=== PATIENT | female | born 1995 | race Asian ===

== ENCOUNTER 2024-08-16 13:11 | Emergency (ER) | payer MEDICAID ==
[~2024-08-16] VITALS: Ht 162.6 cm; Wt 56.8 kg
[2024-08-16 13:15] VITALS: BP 146/79; PULSE 62; RESP 18; TEMP 98.1; O2SAT 99
[2024-08-16] MEDS ORDERED: IBUP-1492 PO (13:48)
[2024-08-16] MEDS ORDERED: ACET-2247 PO (13:48)
[2024-08-16] MEDS ORDERED: AMOX-457 PO (13:48)
[2024-08-16] MEDS: ACETAMINOPHEN 500 MG TABLET PO ONE (14:00)
[2024-08-16] MEDS: AMOX TR/POT CLAV 875 MG/125 MG TABLET PO ONE (14:00)
[2024-08-16] MEDS: IBUPROFEN 600 MG TABLET PO ONE (14:00)
== END 2024-08-16 14:14 | disposition home or self-care (01) ==
LOC: EMS 13:14
DX: K02.9 Dental caries, unspecified (principal); K01.1 Impacted teeth
CPT/HCPCS: 99284; Z7502; Z7610